=== PATIENT | female | born 2000 | race Caucasian/White ===

== ENCOUNTER → 2023-10-16 11:56 | Outpatient (REF) | payer OTHER, SELFPAY | LOC: REG 11:56 | PROVIDERS: ATTENDING PHYSICIAN Nurse Practitioner Family | DX: Z13.9 Encounter for screening, unspecified (principal) | CPT/HCPCS: 71046 ==

== ENCOUNTER → 2025-07-06 07:02 | Outpatient (REF) | payer BC, SELFPAY ==
[2025-07-06 08:04] LABS: Hematocrit 40.7 % (37.0-47.0); Hemoglobin 14.2 g/dL (12.0-16.0); Mean Corp Hgb Conc. 34.9 g/dL (33.0-37.0); Mean Corpuscular Volume 94.0 fL (81.0-99.0); Nucleated Red Blood Cells % 0 %; Platelet Count 312 10^3/uL (130-400); Red Cell Dist. Width 11.5 % (11.5-14.5)
[2025-07-06 08:46] LABS: ALT (SGPT) 17 U/L (0-35); AST (SGOT) 19 U/L (14-36); Albumin 4.7 g/dl (3.5-5.0); Alkaline Phosphatase 48 U/L (38-126); Blood Urea Nitrogen 18 mg/dl (7-17); Calcium 9.5 mg/dl (8.4-10.2); Carbon Dioxide 27 mmol/L (22-30); Chloride 105 mmol/L (98-107); Glucose 89 mg/dl (70-99); HDL Cholesterol 47 mg/dl; LDL Cholesterol, Calculated 103 mg/dl; Potassium 4.2 mmol/L (3.5-5.1); Sodium 138 mmol/L (135-145); Very Low Density Lipoprotein 21 mg/dl (0-30); eGFR > 60.00
[2025-07-06 09:07] LABS: Total Protein 7.6 g/dl (6.3-8.2)
== END ==
LOC: REG 07:02
PROVIDERS: ATTENDING PHYSICIAN Family Medicine
DX: Z00.00 Encounter for general adult medical examination without abnormal findings (principal)
CPT/HCPCS: 36415; 80053; 80061; 84443; 85025